=== PATIENT | female | born 1955 | race Caucasian/White ===

== ENCOUNTER → 2019-03-02 20:05 | Outpatient (CLI) | payer MEDICARE, MEDICAID, SELFPAY | PROVIDERS: Family Provider Nurse Practitioner Family; PCP Nurse Practitioner Family; Referring Provider Internal Medicine Critical Care Medicine; Visit Provider Internal Medicine Critical Care Medicine | DX: G47.33 Obstructive sleep apnea (adult) (pediatric) (principal) | CPT/HCPCS: 95811 ==

== ENCOUNTER → 2019-03-25 13:21 | Outpatient (CLI) | payer MEDICARE, MEDICAID, SELFPAY ==
--- NOTE | 2019-03-26 07:15 | PFT ---
INTRODUCTION: The patient is a 63-year-old female that presents for pulmonary function studies secondary to a diagnosis of chronic respiratory failure. Respiratory therapy reports good patient effort. Bronchodilators were used during testing. INTERPRETATION: Forced expiration spirometry demonstrates no evidence of a large airways obstructive ventilatory defect. There was no significant response to aerosolized bronchodilators, based upon strict ATS criteria. Spirograms are of fair quality and plateau gradually indicating slow emptying of the lungs. Body plethysmography was performed and reveals a decreased TLC to 3.25 L, 73% of predicted, indicative of a mild restrictive ventilatory impairment. Diffusing capacity by single breath CO is severely reduced at 27% of predicted. IMPRESSION: Mild restrictive ventilatory impairment with disproportionate severe reduction in diffusing capacity.
== END ==
PROVIDERS: Family Provider Nurse Practitioner Family; PCP Nurse Practitioner Family; Referring Provider Internal Medicine Critical Care Medicine; Visit Provider Internal Medicine Critical Care Medicine
DX: J96.11 Chronic respiratory failure with hypoxia (principal)
CPT/HCPCS: 94060; 94726; 94729

== ENCOUNTER → 2019-03-26 12:40 | Outpatient (CLI) | payer MEDICARE, MEDICAID, SELFPAY ==
[2019-03-26 13:44] VITALS: PULSE 66; PULSE 69; PULSE 70; PULSE 71; PULSE 72; PULSE 79; O2SAT 88; O2SAT 92; O2SAT 93; O2SAT 94; O2SAT 95; O2SAT 96
--- NOTE | 2019-03-26 13:46 | CPS ---
Patient states she wears 2 lpm at home, came in on her own 2 lpm pulse dose. Room Air SpO2 93-94% so we started the testing on room air. At the first minute patient had just dropped to 88%, placed patient on own tank at 2 lpm pulse dose for the rest of testing.
--- NOTE | 2019-03-27 09:24 | PCM.PSN.6M ---
PSN 6 Minute Walk Test - 6 Minute Walk Test 6 Minute Walk Test: 6 Minute Walk Test PSN:6-Minute Walk Test Start: 03/26/19 13:43 Freq: Status: Active Protocol: [id number].6MINW Document 03/26/19 13:44 JORGE (Rec: 03/26/19 13:48 JORGE [id number]) 6 Minute Walk Test Date Performed 03/26/19 Time Performed 12:50 Height 5 ft 2.5 in Weight: 167 lb Weight in Pounds 167.[address]: Herrera Ren Assistive device used: Walker Pre-test Oxygen Delivery Method Room Air Pulse Ox (%) 94 Pulse Rate (60-100 beats/min) 66 Dyspnea Jose Scale (0-10) 0 Exertion Jose Scale (6-20) 6 1st minute Oxygen Delivery Method Room Air Pulse Ox (%) 88 Pulse Rate (60-100 beats/min) 72 2nd minute Oxygen Flow Rate (L/min) (L/min) 2 Oxygen Delivery Method Nasal Cannula Pulse Ox (%) 92 Pulse Rate (60-100 beats/min) 70 3rd minute Oxygen Flow Rate (L/min) (L/min) 2 Oxygen Delivery Method Nasal Cannula Pulse Ox (%) 95 Pulse Rate (60-100 beats/min) 72 4th minute Oxygen Flow Rate (L/min) (L/min) 2 Oxygen Delivery Method Nasal Cannula Pulse Ox (%) 92 Pulse Rate (60-100 beats/min) 71 5th minute Oxygen Flow Rate (L/min) (L/min) 2 Oxygen Delivery Method Nasal Cannula Pulse Ox (%) 93 Pulse Rate (60-100 beats/min) 79 6th minute Oxygen Flow Rate (L/min) (L/min) 2 Oxygen Delivery Method Nasal Cannula Pulse Ox (%) 92 Pulse Rate (60-100 beats/min) 70 Dyspnea Jose Scale (0-10) 1 Exertion Jose Scale (6-20) 14 Post-test Oxygen Flow Rate (L/min) (L/min) 2 Oxygen Delivery Method Nasal Cannula Pulse Ox (%) 96 Pulse Rate (60-100 beats/min) 69 Full Laps Walked 8 Partial Lap, Number of Tiles Walked 46 Total Distance Walked (ft) 518 03/26/19 13:46 Cardiopulmonary Services by Jessica Griffith Patient states she wears 2 lpm at home, came in on her own 2 lpm pulse dose. Room Air SpO2 93-94% so we started the testing on room air. At the first minute patient had just dropped to 88%, placed patient on own tank at 2 lpm pulse dose for the rest of testing. Initialized on 03/26/19 13:46 - END OF NOTE - Interpretation Interpretation: The patient ambulated 518 feet over the course of 6 minutes beginning on room air with the use of a walker. Pretesting oxygen saturation was noted to be 94% on room air. With ambulation, the marco a oxygen saturation was 88%. 2 L/min of pulse dose supplemental oxygen was applied, and the patient was able to complete the remainder of the test while maintaining appropriate oxygen saturations. - Recommendations Recommendations: 2 L/min of pulse dose supplemental oxygen should be utilized with exertion.
== END ==
PROVIDERS: Family Provider Nurse Practitioner Family; PCP Nurse Practitioner Family; Referring Provider Nurse Practitioner Acute Care; Visit Provider Nurse Practitioner Acute Care
DX: J96.11 Chronic respiratory failure with hypoxia (principal)
CPT/HCPCS: 94618

== ENCOUNTER → 2019-04-08 13:10 | Outpatient (CLI) | payer MEDICAID, MEDICARE, SELFPAY ==
[2019-04-08 12:33] VITALS: BMI 30.9
== END ==
PROVIDERS: Family Provider Nurse Practitioner Family; PCP Nurse Practitioner Family; Referring Provider Internal Medicine Critical Care Medicine; Visit Provider Internal Medicine Critical Care Medicine
DX: G47.33 Obstructive sleep apnea (adult) (pediatric) (principal)

== ENCOUNTER → 2020-04-06 15:05 | Outpatient (CLI) | payer MEDICARE, MEDICAID, SELFPAY ==
[2020-03-20 11:08] VITALS: BMI 30.2
--- NOTE | 2020-04-06 15:08 | CT_ITS ---
STUDY: CT CHEST WITHOUT CONTRAST REASON FOR EXAM: Female, 64 years old. PULMONARY FIBROSIS, COPD, EMPHYSEMA, OPEN HEART RADIATION DOSAGE (If Supplied By Facility): CTDIvol = ( 16.81 ) mGy, DLP = ( 452.83 ) mGycm TECHNIQUE: Transaxial imaging was performed without the administration of intravenous contrast material. Multiplanar coronal and sagittal images were reformatted. Individualized dose optimization techniques were used for this CT. COMPARISON: None. FINDINGS: There is evidence of a 1.2 cm noncalcified nodule in the left lower lobe abutting the left hemidiaphragm. Diffuse increased interstitial markings involving both upper and lower lobes worse in the lower lobes with evidence of subpleural blebs and bronchiectasis. This is in keeping with chronic interstitial fibrosis. There are bilateral calcified pleural plaques. Sternal cerclage wires and vascular clips are present from a prior sternotomy and coronary artery bypass graft procedure (CABG). There are calcifications of the coronary arteries. There are multiple small lymph nodes within the mediastinum, which are normal in size and morphology most compatible with reactive lymph hyperplasia. Normal hilar regions. Normal unenhanced pulmonary arteries. There is atherosclerotic calcification of the aortic arch with tortuosity and elongation of the aortic arch and descending thoracic aorta. There are multi-level degenerative changes of the thoracic spine. Electrodes from a pain pump are seen with the tip at the level of the T7 vertebral level. There is no demonstrated abnormality of the visualized upper abdomen. CT/Chest without Contrast IMPRESSION: Findings in comparison with the interstitial fibrosis worse in the lower lobes. Calcified pleural plaques bilaterally. Noncalcified 1.2 cm nodule in the left lower lobe. Correlation with a PET scan is recommended. Electronically Signed: Jan Chester, at 15:43 EST , Service support ,
== END ==
PROVIDERS: PCP Family Medicine; Referring Provider Nurse Practitioner Acute Care; Visit Provider Nurse Practitioner Acute Care
DX: J84.10 Pulmonary fibrosis, unspecified (principal)
CPT/HCPCS: 71250

== ENCOUNTER → 2020-04-21 08:15 | Outpatient (CLI) | payer MEDICARE, MEDICAID, SELFPAY ==
--- NOTE | 2020-04-20 13:02 | NURSING ---
PT STS SHE HAD LABS DRAWN 04/19 AT [facility]. CALLED [facility] TO HAVE RESULTS FAXED TO RADIOLOGY.
[2020-04-21] VITALS (12 sets, daily range): BP systolic 105–155; BP diastolic 42–88; PULSE 21–98; RESP 18–100; TEMP 36.8; O2SAT 99–100; BMI 31.4
--- NOTE | 2020-04-21 | ASPIGT_PTH ---
PATIENT: DELL MUNIZ LOC: CT U#:[id number] AGE/SX: 69/F ROOM: RE04/21/[address]: SAM Abreu : 1955 BED: DIS: SPEC #: [id number] RECD: 04/21/20 10:30 STATUS: COLBY HAYNESJackson #: [id number] YOLANDA: 04/21/20 00:[address]: Bing Summers NP DEPT: SURGICAL PATHOLOGY RECD BY: Apoorva Stark ENTERED: 04/21/20 11:10 SP TYPE: ASP RAD OTHR DR: Dr. Juancho Simon MD Tissues: Lung, NOS Procedures: FNA Specimen Adequacy Special Stain Group II Surgery Specimen Level IV Imprint (control) HEADER OPERATION: LLL biopsy PRE-OP DIAGNOSIS: LLL mass TISSUE SUBMITTED: LLL biopsy 20-gauge MICROSCOPIC DIAGNOSIS Left lower lung, CT-guided biopsy: Benign lung parenchyma. No evidence of inflammation. AM:adina 04/24/2020 COMMENT The specimen is evaluated at the time of biopsy by Dr. Sullivan. Immediate Evaluation: Pass 1 - Fibrous tissue. No evidence of malignancy. Pass 2 - Fibrous tissue. No evidence of malignancy. MICROSCOPIC DESCRIPTION Slides are reviewed. GROSS DESCRIPTION Pass 1 - Received labeled with the patient's name and designated LLL. The specimen consists of one core of reynaga-red tissue measuring 0.5 x <0.1 cm. The specimen is totally submitted in one cassette. Four touch imprints (2 DQ, 2 pap) are prepared at the time of core biopsy. Pass 2 - Received labeled with the patient's name and designated LLL. The specimen consists of one core of reynaga tissue measuring 0.5 x <0.1 cm. The specimen is totally submitted in one cassette. Two touch imprints (1 DQ, 1 pap) are prepared at the time of core biopsy. / AM:adina 04/21/20 TC:5 CPT: 44602, 73486, 35088
--- NOTE | 2020-04-21 08:24 | CT_ITS ---
PROCEDURE: CT GUIDED CORE NEEDLE BIOPSY OF A left lower lobe LUNG LESION INDICATION: Female, 64 years old. LUNG BIOPSY, LLL MASS PHYSICIAN: Dr. REBECA CAUSEY CONSENT: Written informed consent was obtained having explained the risks, benefits and alternatives in detail with the patient who accepted the risks and agreed to proceed. Laboratory review and clinical assessment was performed. CONSCIOUS SEDATION PROTOCOL: The Drugs used were: 2 mg Versed, IV., and 50 mcg Fentanyl, IV. The sedation time was: 29 minutes. The conscious sedation protocol was independently monitored. Conscious sedation was started at 9:38 AM and terminated at 1007. RADIATION DOSAGE (If Supplied By Facility): CTDIvol = ( 17 ) mGy, DLP = ( 1084.23 ) mGycm Individualized dose optimization techniques were used for this CT. TECHNIQUE: The patient was placed in the prone position. A noncontrast CT was performed to localize the lesion in the left lower lobe . The skin surface was prepped and draped in a sterile fashion. 1% lidocaine was used for local anesthesia. Using CT guidance, a 20-gauge coaxial biopsy device was advanced to the periphery of the lesion. A total of 5 core specimens were obtained. The specimens were placed in a formalin solution. A post procedure CT demonstrated no adverse sequelae or pneumothorax. The patient tolerated the procedure well without adverse event. A negative biopsy does not exclude malignancy. Further imaging or clinical followup based on patient condition and degree of clinical suspicion for malignancy. Suggest rebiopsy, if biopsy results do not match with clinical scenario. CT/Biopsy/Inj or Needle Placement IMPRESSION: 1. CT directed core needle biopsy of the left lower lobe nodule using CT image guidance with image documentation as described. Pathology results are pending. 2. Conscious Sedation protocol utilized with independent monitoring. Electronically Signed: Jan Chester MD at 10:44 EST , Service support ,
[2020-04-21 08:28] LABS: Platelet Count 318 K/mm3 (150-450)
[2020-04-21] MEDS: Midazolam 2 MG/2 ML Syringe IV (09:38)
[2020-04-21] MEDS: fentaNYL 100 MCG/2 ML Ampul IV (09:38)
--- NOTE | 2020-04-21 10:00 | RAD_ITS ---
STUDY: X-RAY CHEST REASON FOR EXAM: Female, 64 years old. POST LEFT LUNG BX TECHNIQUE: AP inspiration and expiration views. COMPARISON: None. FINDINGS: Immediate post left lung biopsy radiographs. No evidence of pneumothorax. RAD/Chest Insp/Exp 2 View IMPRESSION: No evidence of pneumothorax on the immediate post left lung biopsy radiographs. Electronically Signed: Jan Chester MD at 10:32 EST , Service support ,
--- NOTE | 2020-04-21 12:10 | RAD_ITS ---
STUDY: X-RAY CHEST REASON FOR EXAM: Female, 64 years old. 2 HOUR POST LEFT LUNG BIOPSY. TECHNIQUE: AP inspiration and expiration views. COMPARISON: Comparison is made with prior examination done earlier today. FINDINGS: No evidence of pneumothorax on the two-hour delayed post right lung biopsy radiographs. RAD/Chest Insp/Exp 2 View IMPRESSION: No evidence of pneumothorax on the 2 hour delayed post right lung biopsy radiographs. Electronically Signed: Jan Chester MD at 13:19 EST , Service support ,
--- NOTE | 2020-04-21 12:50 | NURSING ---
CXR CLEARED BY DR JOSE.
== END ==
PROVIDERS: PCP Family Medicine; Referring Provider Nurse Practitioner Acute Care; Visit Provider Nurse Practitioner Acute Care
DX: D14.32 Benign neoplasm of left bronchus and lung (principal); J84.10 Pulmonary fibrosis, unspecified; J96.11 Chronic respiratory failure with hypoxia; K21.9 Gastro-esophageal reflux disease without esophagitis; F41.9 Anxiety disorder, unspecified; I13.0 Hypertensive heart and chronic kidney disease with heart failure and stage 1 through stage 4 chronic kidney disease, or unspecified chronic kidney disease; N18.9 Chronic kidney disease, unspecified; I50.9 Heart failure, unspecified; I73.9 Peripheral vascular disease, unspecified; J44.9 Chronic obstructive pulmonary disease, unspecified; E78.5 Hyperlipidemia, unspecified; Q78.2 Osteopetrosis; F17.200 Nicotine dependence, unspecified, uncomplicated; Z95.1 Presence of aortocoronary bypass graft; Z99.81 Dependence on supplemental oxygen; Z79.899 Other long term (current) drug therapy
CPT/HCPCS: 32408; 36415; 71046; 77012; 85049; 88172; 88305; 88313; 99155; 99156; J7040; A4216

== ENCOUNTER → 2020-05-30 16:21 | Outpatient (CLI) | payer MEDICARE, MEDICAID, SELFPAY ==
--- NOTE | 2020-05-30 16:30 | PET_ITS ---
EXAMINATION: FDG PET/CT INDICATIONS: A 64-year-old female with history of pulmonary nodularity. COMPARISON EXAMINATION: CT of the chest report dated 04/06/20 NON-INDEX LESION SIZE SUV INTERPRETATION Bilateral lung simon, linear 1.0 (max) Quantitative criteria for viable neoplasm are not fulfilled TECHNIQUE: Following the intravenous administration of 14.55 mCi of F-18 deoxyglucose via the left antecubital fossa, multiplanar image acquisitions of the neck, chest, abdomen and pelvis to level of mid thigh, obtained at one hour post radiopharmaceutical administration contemporaneously interpreted with the current CT of the neck, chest, abdomen and pelvis to level of mid thigh, dated 05/30/[address] of the chest report dated 04/06/20 reveal: SERUM GLUCOSE LEVEL: 94 mg/dl. HEIGHT: 62 inches. WEIGHT: 171 lbs. FINDINGS: 1. Mild non-nodular increased glucose concentration is demonstrated in the right and left hemithorax pulmonary parenchyma corresponding to interstitial changes defined on CT of the chest dated 05/30/20. The calculated maximal standard uptake value is 1.0. 2. Normal physiologic distribution of the radiopharmaceutical is apparent in the hepatic (3.3) and splenic parenchyma, left renal units, bladder and visualized intestinal tract. The visualized portion of the cerebral cortical-subcortical structures demonstrate symmetric and preserved glucose metabolism. Pertinent CT findings are as follows: CHEST: Prominent interstitial changes defined in the bilateral hemithorax demonstrate mild non-quantitatively significant increased FDG uptake. An ovoid non-calcified density noted in the left lower basilar lung-left lower lobe reveals no evidence of increased tracer uptake. Emphysematous change is noted in the bilateral upper lung zones. There is atherosclerotic calcification defined in the thoracic aorta without evidence of dilatation-aneurysm formation. Coronary arterial calcification is observed. There is evidence of previous median sternotomy. Calcified pleural plaque formation is identified in the bilateral hemithorax without evidence of increased tracer uptake. 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 There is visualized cholelithiasis. There is atherosclerotic calcification defined in the abdominal aorta without evidence of dilatation-aneurysm formation. Abdominal-pelvic arterial calcification is defined. Right and left inguinal soft tissue densities are ametabolic. Calcification appears evident in the left renal unit. Calcifications are noted in the region of the right-left adnexa without evidence of quantitatively significant increased glucose metabolism. SKELETAL: Degenerative changes are noted in the cervical, thoracic and lumbar spine without evidence of increased radiopharmaceutical concentration. Orthopedic hardware placement is noted in the cervical, thoracic and lumbar spine. PET/PET/CT Tumor Base -Thigh Init IMPRESSION: 1. NEGATIVE EXAMINATION. There is no definitive quantitative scintigraphic evidence of viable neoplasm. 2. Accentuated uptake observed in the right and left hemithorax pulmonary parenchyma, linear in presentation, associated with interstitial changes do not fulfill quantitative criteria for viable neoplasm. (Roseanna et al, Annals of Internal Medicine, 138:724, 2003). 3. Anatomic stability may be ensured in the non-glucose avid left basilar lung-left lower lobe parenchymal density with repeat CT of the thorax in 3-6 months. (Vasyl, Seminars in Thoracic and Cardiovascular Surgery 14:292, 2002). Electronic Signature Jad Thorpe D.O. Accurate Quantification of SUVs for this report are calculated using the exclusive [employer]? Technology.??Exclusive [place]. Patent [employer]? Technology ([place].S. Patent No. [id number] [id number]). Electronically Signed: Jad Thorpe DO at 22:25 EST Tel , Service support ,
== END ==
PROVIDERS: PCP Family Medicine; Referring Provider Nurse Practitioner Acute Care; Visit Provider Nurse Practitioner Acute Care
DX: R91.8 Other nonspecific abnormal finding of lung field (principal)
CPT/HCPCS: 78815; A9552

== ENCOUNTER → 2020-06-16 13:05 | Outpatient (CLI) | payer MEDICARE, MEDICAID, SELFPAY ==
[2020-03-20 11:08] VITALS: BMI 30.2
[2020-04-21 08:56] VITALS: BMI 31.4
--- NOTE | 2020-06-17 07:23 | PFT ---
INTRODUCTION: The patient is a 64-year-old female that presents for pulmonary function studies secondary to a diagnosis of COPD. Respiratory therapy reported good patient effort. Bronchodilators were used during testing. INTERPRETATION: Forced expiration spirometry demonstrates no evidence of a large airways obstructive ventilatory defect. However, there were symmetric reductions in FVC and FEV1. There was no significant bronchodilator response. Spirograms are of suboptimal quality and terminate prior to 6 seconds, likely underestimating FVC. Body plethysmography was performed and reveals lung volumes to be within normal limits. Diffusing capacity by single breath CO is mildly reduced to 67% of predicted. When compared to previous pulmonary function studies from March 2019, there has been improvement in the patient's total lung capacity and a significant improvement in DLCO. IMPRESSION: Mild reduction in diffusing capacity with significant improvement noted in PFT since March 2019, as noted above.
== END ==
PROVIDERS: PCP Family Medicine; Referring Provider Nurse Practitioner Acute Care; Visit Provider Nurse Practitioner Acute Care
DX: J44.9 Chronic obstructive pulmonary disease, unspecified (principal)
CPT/HCPCS: 94060; 94726; 94729

== ENCOUNTER → 2020-10-17 17:23 | Outpatient (CLI) | payer MEDICARE, MEDICAID, SELFPAY ==
[2020-07-06 14:12] VITALS: BMI 32.0
--- NOTE | 2020-10-17 17:28 | CT_ITS ---
STUDY: CT CHEST WITHOUT CONTRAST REASON FOR EXAM: Female, 64 years old. COPD. Pulmonary fibrosis. Left lung nodule. RADIATION DOSAGE (If Supplied By Facility): CTDIvol = ( 19.01 ) mGy, DLP = ( 674.18 ) mGycm TECHNIQUE: Transaxial imaging was performed without the administration of intravenous contrast material. Multiplanar coronal and sagittal images were reformatted. Individualized dose optimization techniques were used for this CT. COMPARISON: Comparison is made with prior examination dated 04/06/2020. FINDINGS: Once again, there is diffuse emphysematous changes with increased interstitial markings with subpleural blebs. There is evidence of a confluence in the lower lobes worse on the right side suggestive of chronic interstitial fibrosis. This is unchanged. Stable 1.2 cm noncalcified nodule in the left lower lobe adjacent to the left hemidiaphragm Calcified pleural plaques bilaterally more prominent on the right side. Sternal cerclage wires and vascular clips are present from a prior sternotomy and coronary artery bypass graft procedure (CABG). There are calcifications of the coronary arteries. There are multiple small lymph nodes within the mediastinum, which are normal in size and morphology most compatible with reactive lymph hyperplasia. Normal hilar regions. Normal unenhanced pulmonary arteries. There is atherosclerotic calcification of the aortic arch with tortuosity and elongation of the aortic arch and descending thoracic aorta. There are multi-level degenerative changes of the thoracic spine. There is no demonstrated abnormality of the visualized upper abdomen. CT/Chest without Contrast IMPRESSION: Stable examination. Electronically Signed: Jan Chester MD at 20:53 EDT , Service support ,
== END ==
PROVIDERS: PCP Family Medicine; Referring Provider Nurse Practitioner Acute Care; Visit Provider Nurse Practitioner Acute Care
DX: R91.8 Other nonspecific abnormal finding of lung field (principal); J44.9 Chronic obstructive pulmonary disease, unspecified; J84.10 Pulmonary fibrosis, unspecified
CPT/HCPCS: 71250